=== PATIENT | male | born 1940 | race Two or more races ===

== ENCOUNTER 2017-10-03 20:04 | Inpatient (IN) | payer MEDICARE ==
[~2017-10-03] VITALS: Ht 210.8 cm; Wt 98.9 kg
--- NOTE | 2017-10-03 22:30 | NUR ---
patient [facility]ie[facility] and alert and talkative from [facility]. DX Pathological right femur FX. Seen by MD Christianson, he is aware the right leg is twisted and the patient will not allow me to straighten the leg. Md did tell the patient it would be better for the leg to be straight, and patient comment, ponting to me, "That is what she said". After being medicated with Morphine patient continued to have his leg slowly in good alignment, " stating the leg is too pain when moved, he is okay when not moved. He was transfered to the bed from [facility] with 4 medical staff. Right /Left leg bilaterally strong pedal pulses and warm. Sign above bed to alert all staff no Needle Sticks or Blood Pressure right arm dt lymph nodes rmoved dt Cancer.
[2017-10-04] VITALS: BP 98/79
[2017-10-04] MEDS ORDERED: LISI1TAB9 PO (00:23)
[2017-10-04] MEDS ORDERED: CELE200C PO (00:23)
[2017-10-04] MEDS ORDERED: CARV6.252 PO (00:23)
[2017-10-04] MEDS ORDERED: [UNRECOGNIZED DRUG - OTHER] (00:23)
[2017-10-04] MEDS ORDERED: ALLO300T2 PO (00:23)
[2017-10-04] MEDS ORDERED: MULT-1119 PO (00:23)
[2017-10-04] MEDS ORDERED: METF500T4 PO (00:23)
[2017-10-04] MEDS ORDERED: CARI350T27 PO (00:23)
[2017-10-04] MEDS ORDERED: METF10002 PO (00:23)
[2017-10-04] MEDS ORDERED: UBID30CA11 PO (00:23)
[2017-10-04] MEDS ORDERED: MORPHINE SULFATE INJ 2 MG/ML DISP.SYRIN IV PRN (02:00)
[2017-10-04] MEDS ORDERED: Z GUARD REMEDY 2 OZ OINT TP PRN (02:00)
[2017-10-04] MEDS ORDERED: ONDANSETRON HCL/PF 4 MG/2 ML VIAL IVP PRN (02:00)
[2017-10-04] MEDS ORDERED: ACETAMINOPHEN 325 MG TABLET PO PRN (02:00)
[2017-10-04] MEDS ORDERED: MORPHINE SULFATE INJ 10 MG/ML DISP.SYRIN ONE (02:17)
[2017-10-04] MEDS: IV NS 0.9% 1,000 ML IV PRN ×2 (02:44→18:38)
[2017-10-04] MEDS ORDERED: LORAZEPAM INJ 2 MG/ML VIAL ONE (03:15)
[2017-10-04] MEDS: LORAZEPAM INJ 2 MG/ML VIAL IV PRN ×2 (03:19→20:26)
--- NOTE | 2017-10-04 04:57 | NUR ---
Patient given Morphine 2 mg for pain right hip, and it was effective. The right leg remains as when admitted, deformed position. Seen by Md Ferrer. He refuses to allow me to gentley strreaighten the leg out. MD ferrer and I also told him the reason iy would be better to have the leg straight. Good pedal pulse magui feet and warm to touch. NPO d/t consult surgeon to see Possible surgery. Wallet with cards/cell po and online user experience strategist/ eyeglasses/ black address book at the bedside, instructed him to give to friend when they come to visit. Originally went to [facility], was transfered to [facility] @ 22:30. Remains alert and orientated X4
--- NOTE | 2017-10-04 07:05 | NUR ---
MS RN OPENING NOTES RECEIVED PT FROM NIGHTSHIFT NURSE IN STABLE CONDITION. PT IS A/O X3. NO SOB OR SIGNS OF DISTRESS NOTED. BREATHING IS EVEN AND UNLABORED. PT DENIES PAIN AT THIS TIME. NPO STATUS UPHELD FOR POSSIBLE SURGERY. PT. MADE AWARE AND VERBALIZED UNDERSTANDING. PER NIGHTSHIFT NURSE PT MAY HAVE ICE CHIPS AND MEDS ACCORDING TO THE MD. LARA CATHETER FROM [place] REMAINS INTACT AND DRAINING CLEAR YELLOW URINE. IV NOTED ON LEFT ARM INFUSING NS @ 70ML/HR. PT IS TOLERATING INFUSION WELL. NO REDNESS OR SIGNS OF INFILTRATION NOTED. BED IN LOW LOCKED POSITION, SIDE RAILS UP X3, CALL LIGHT WITHIN REACH, BED ALARM ON. WILL CONTINUE TO MONITOR
[2017-10-04 07:08] VITALS: BP 142/65
[2017-10-04] MEDS: CARVEDILOL 6.25 MG TABLET PO SCH (09:00)
[2017-10-04] MEDS: CARISOPRODOL 350 MG TABLET PO SCH (09:35)
[2017-10-04] MEDS: ALLOPURINOL 100 MG TABLET PO SCH (09:35)
[2017-10-04] MEDS: LISINOPRIL (10MG) 10 MG TABLET PO SCH (09:35)
--- NOTE | 2017-10-04 12:19 | NUR ---
Social service consult requested by THOMPSON Vora for Advance Directives. ANGY met with pt. bedside. Pt. is a 77 year old male who was admitted to [facility] for right hip fracture. Pt. is alert and oriented x4. ANGY gave pt. the Advance directive form and reviewed the form with him. Pt. will notify his family regarding completing the advance directives.
--- NOTE | 2017-10-04 14:38 | NUR ---
XRAY ORDERS TO BE CLARIFIED. ORDERED "LEFT" HIP AND FEMUR, PATIENT STATES PAIN IS ON "RIGHT" SIDE. PATIENT STATES HE IS IN PAIN AND UNABLE TO TOLERATE XRAYS CURRENTLY. RN WILL CALL WHEN READY.
[2017-10-04] MEDS: HYDROMORPHONE 1 MG/1 ML DISP.SYRIN IV PRN (17:10)
[2017-10-04] MEDS: METFORMIN 500 MG TABLET PO SCH (17:10)
--- NOTE | 2017-10-04 17:13 | NUR ---
MS RN NOTES PT ASKED THAT DR. GREENE SPEAK TO HIS ONCOLOGIST. PER COURY THE SMOKEHOUSE OPERATOR, THE ONCOLOGIST HAS ASKED FOR XRAYS OF THE PT'S LEFT LEG DESPITE THE FRACTURE BEING IN HIS RIGHT DUE TO AN ABNORMAL PET SCAN DONE PRIOR TO THIS ADMISSION. PT IS REFUSING TO DO THE XRAYS AT THIS TIME. WAS MADE AWARE
--- NOTE | 2017-10-04 17:36 | NUR ---
MS RN NOTES PT HAS NOW AGREED TO LEFT LEG XRAYS. EMERGENCY DOCTOR WAS NOTIFIED AND STATED THAT HE WILL BE UP SHORTLY. MADE AWARE
--- NOTE | 2017-10-04 18:35 | NUR ---
MS RN CLOSING NOTES PT REMAINS IN STABLE CONDITION. ALL DUE MEDS GIVEN AND ORDERS CARRIED OUT ACCORDINGLY. SUPERVISOR DENTURE DEPARTMENT IS WITH THE PT AT THE MOMENT. ALL SAFETY MEASURES REMAIN IN PLACE. WILL ENDORSE TO NIGHTSHIFT NURSE FOR SOPHIA
[2017-10-04 20:00] VITALS: BP 126/77
--- NOTE | 2017-10-04 20:00 | NUR ---
MS/RN OPENING NOTES PATIENT IN BED, ALERT, ORIENTED AND ABLT TO VERBALIZE NEEDS, REQUESTED TO HAVE ATIVAN IVP DUE TO INABILITY TO RELAX, PATIENT ON NPO AFTER MN FOR PROCEDURE, CONSENT SIGNED, WILL PREPARE CHECKLIST, WARM BLANKET PROVIDED, CALL LIGHTS WITHIN REACH, BED IN LOCK POSITION, WILL CONTINUE TO MONITOR, ON OXYGEN 2 L VIA NC .
[2017-10-05] MEDS: IV NS 0.9% 1,000 ML IV PRN ×2 (05:32→23:53)
--- NOTE | 2017-10-05 06:42 | NUR ---
310-2 MS/RN CLOSING NOTES PATIENT RESTING COMFORTABLY IN BED, ABLE TO SLEEP DURING THE NIGHT, ADMINISTER IVP ATIVAN PER PATIENT REQUEST, MONITORING FOR PAIN. PROVIDE WARMTH, RESPIRATIONS EVEN AND UNLABORED, WILL CONTINUE TO MONITOR. WILL ENDORSE TO AM RN FOR SOPHIA.
--- NOTE | 2017-10-05 07:05 | NUR ---
MS RN OPENING NOTES RECEIVED PT FROM NIGHTSHIFT NURSE IN STABLE CONDITION. PT IS A/O X3. NO SOB OR SIGNS OF DISTRESS NOTED. BREATHING IS EVEN AND UNLABORED. PT DENIES PAIN AT THIS TIME. NPO STATUS MAINTAINED SINCE MIDNIGHT FOR SURGERY AT 11:30. LARA CATHETER INTACT AND DRAINING CLEAR YELLOW URINE. IV NOTED ON LEFT ARM INFUSING NS @ 75ML/HR. PT IS TOLERATING INFUSION WELL. NO REDNESS OR SIGNS OF INFILTRATION NOTED. BED IN LOW LOCKED POSITION, SIDE RAILS UP X3, CALL LIGHT WITHIN REACH, BED ALARM ON. WILL CONTINUE TO MONITOR
[2017-10-05 07:16] LABS: EOSINOPHILS # (AUTO) 0.1 /CMM (0.0-0.7); EOSINOPHILS % (AUTO) 1.8 % (0.0-6.0); HEMATOCRIT 24 % (39-51); HEMOGLOBIN 8.1 g/dL (13.5-17.5); LYMPHOCYTES # (AUTO) 0.9 /CMM (0.8-4.8); LYMPHOCYTES % (AUTO) 19.1 % (20.0-44.0); MEAN CORPUSCULAR HEMOGLOBIN 28 PG (26.0-33.0); MEAN CORPUSCULAR HGB CONC 34 g/dl (31.0-36.0); MEAN CORPUSCULAR VOLUME 82 fL (80-96); MONOCYTES # (AUTO) 0.5 /CMM (0.1-1.30); MONOCYTES % (AUTO) 10.7 % (2.0-12.0); NEUTROPHILS # (AUTO) 3.2 /CMM (1.8-8.9); NEUTROPHILS % (AUTO) 68.4 % (43.0-81.0); PLATELET COUNT (AUTO) 136 /CMM (150-450); RDW COEFFICIENT OF VARIATION 14.7 (11.5-15.0); RED BLOOD CELL COUNT(AUTO) 2.93 MIL/uL (4.5-6.0); WHITE BLOOD COUNT (AUTO) 4.6 K/uL (4.3-11.0)
[2017-10-05 07:25] LABS: CARBON DIOXIDE 27 mmol/L (21-32); CHLORIDE 110 mmol/L (98-107); CREATININE 1.3 mg/dL (0.6-1.3); GLUCOSE 146 mg/dL (74-106); MAGNESIUM 1.4 mg/dL (1.8-2.4); SODIUM SERUM 145 mmol/L (136-145); UREA NITROGEN, BLOOD 29 mg/dL (7-18)
[2017-10-05 07:54] LABS: CHOLESTEROL 161 mg/dL (<200); HDL CHOLESTEROL 48 mg/dL (40-60); LDL 87 mg/dL (0-99); TRIGLYCERIDES 118 mg/dL (30-150)
[2017-10-05 08:00] VITALS: BP 126/63
[2017-10-05] MEDS: CARVEDILOL 6.25 MG TABLET PO SCH ×2 (08:00→18:11)
--- NOTE | 2017-10-05 08:50 | NUR ---
MS RN NOTES PT'S MG IS 1.4 AND SCHEDULED FOR SURGERY AT 11.30. DR. ZHOU WAS NOTIFIED AND ORDERED 2G OF MAG. WILL INPUT ORDER AND ADMINISTER MEDICATION
[2017-10-05 08:59] LABS: INR 0.98 (0.87-1.13); PROTHROMBIN TIME 10.2 SECS (9.5-12.7)
[2017-10-05] MEDS: ALLOPURINOL 100 MG TABLET PO SCH (09:00)
[2017-10-05] MEDS: LISINOPRIL (10MG) 10 MG TABLET PO SCH (09:00)
[2017-10-05] MEDS: CARISOPRODOL 350 MG TABLET PO SCH (09:00)
[2017-10-05] MEDS ORDERED: Magnesium 1 GM/2 ML VIAL IV ONE (09:00)
[2017-10-05] MEDS: Magnesium 1GM/D5W 100ML PREMIX 100 ML IV SCH ×2 (09:03→10:10)
[2017-10-05] MEDS ORDERED: FENTANYL PF 100MCG/2ML AMPUL ONE ×2 (11:18→12:40)
--- NOTE | 2017-10-05 11:19 | NUR ---
MS RN NOTES PY TAKEN DOWN BY OR STAFF FOR SCHEDULED PROCEDURE IN STABLE CONDITION. 2G OF MAGNESIUM WERE ADMINISTERED PRIOR TO OPERATION ORDERED
[2017-10-05] MEDS ORDERED: BACITRACIN 50000 UNITS/VIAL ONE (11:27)
[2017-10-05] MEDS ORDERED: BUPIVACAINE 0.5 % PF 150 MG/30 ML VIAL ONE (11:27)
[2017-10-05] MEDS ORDERED: ONDANSETRON HCL/PF 4 MG/2 ML VIAL ONE (12:51)
--- NOTE | 2017-10-05 13:30 | NUR ---
MS RN NOTES RECEIVED PT FROM OR IN STABLE CONDITION. PT IS AWAKE BUT A LITTLE DROWSY FROM THE PROCEDURE. HE DENIES ANY PAIN AT THIS TIME. SCDS PLACED ON BILATERAL LOWER EXTREMITIES. ORDERS FROM MD NOTED. SURGICAL DRESSING NOTED ON RIGHT HIP AND RIGHT LOWER THIGH. VITALS WNL. WILL CONTINUE TO MONITOR.
[2017-10-05 16:00] VITALS: BP 122/62
--- NOTE | 2017-10-05 17:36 | NUR ---
MS RN NOTES PT REFUSED PT EVAL AT THIS TIME DUE TO PAIN. CARMEN THE PT ASKED IF THE MD CAN PLACE ANOTHER ORDER FOR PT. JOSE WAS NOTIFIED AND SATED THAT HE WILL PUT IT IN TOMORROW
[2017-10-05] MEDS: METFORMIN 500 MG TABLET PO SCH (18:10)
--- NOTE | 2017-10-05 18:33 | NUR ---
MS RN CLOSING NOTES PT REMAINS IN STABLE CONDITION AFTER ORIF PROCEDURE. VITALS REMAIN IN WNL. SURGICAL SITE REMAIN CLEAN, DRY, AND INTACT. ALL DUE MEDS GIVEN AND ORDERS CARRIED OUT ACCORDINGLY. SAFETY MEASURES REMAIN IN PLACE. WILL ENDORSE TO NIGHTSHIFT NURSE FOR SOPHIA
--- NOTE | 2017-10-05 19:30 | NUR ---
MS RN OPENING NOTES: PATIENT IN BED, AOX4, ON ROOM AIR, BREATHING EVEN AND UNLABORED. APPEARS CALM, BUT DOES COMPLAIN OF PAIN OVER R HIP AND LOWER BACK SCALED AT 5/10, DESCRIBED DULL. PIV OVER L ARM G18 INTACT AND INFUSING WELL WITH NS RUNNING AT 75 ML/HR. LARA CATHETER IN PLACE DRAINING CLEAR YELLOW URINE. PROVIDED FOR COMFORT AND SAFETY. BED IN LOWEST AND LOCKED POSITION, SIDERAILS UPX3. WILL CONT TO MONITOR.
[2017-10-05 20:00] VITALS: BP 123/57
--- NOTE | 2017-10-05 23:00 | NUR ---
RN NOTES: SPOKE TO DR BEAVERS, EXPLAINED TO HIM PATIENT IS POST OP, VTE SCORE IS 5, ASKED IF HE WANTS TO ORDER CHEMICAL PPX. PER DR BEAVERS, OK TO START LOVENOX 40 MG SQ DAILY. ALSO ORDERED FOR DVT PUMPS. NOTED AND CARRIED OUT.
[2017-10-05] MEDS: LORAZEPAM INJ 2 MG/ML VIAL IV PRN (23:44)
[2017-10-06] VITALS (15 sets, daily range): BP systolic 113–141; BP diastolic 51–74
[2017-10-06] MEDS: HYDROMORPHONE 1 MG/1 ML DISP.SYRIN IV PRN ×2 (02:07→21:45)
--- NOTE | 2017-10-06 02:09 | NUR ---
RN NOTES: PT COMPLAINED OF 8/10 PAIN OVER R HIP, WHEN RN AND CADDIE SUPERVISOR ARE TRYING TO REPOSITION HIM. ADMINISTERED 0.25 MG DILAUDID IV PRN. WILL CONT TO MONITOR.
[2017-10-06] MEDS ORDERED: diphenhydrAMINE HCL 50 MG CAPSULE PO PRN (04:30)
--- NOTE | 2017-10-06 06:55 | NUR ---
MS RN CLOSING NOTES: PATIENT IN BED, AOX4, ON ROOM AIR, BREATHING EVEN AND UNLABORED. APPEARS CALM AND IN NO DISTRESS, BUT STILL COMPLAINS OF 8-9/10 PAIN OVER R HIP AND LOWER BACK WHENEVER HE IS BEING REPOSITIONED. PIV OVER KARLA G18 INTACT AND PATENT, INFUSING WELL WITH NS RUNNING AT 75 ML/HR. LARA CATHETER IN PLACE DRAINING CLEAR YELLOW URINE. DRESSING OVER R HIP INTACT AND CLEAN, WITH NO SIGNS OF BLEEDING OR PURULENT DISCHARGE. DUE MEDS GIVEN. PROVIDED FOR COMFORT AND SAFETY. BED IN LOWEST AND LOCKED POSITION, SIDERAILS UPX3. WILL ENDORSE TO AM RN FOR SOPHIA.
[2017-10-06] MEDS: ENOXAPARIN SODIUM 40 MG/0.4 ML DISP.SYRIN SQ SCH ×2 (07:30→15:59)
[2017-10-06 07:43] LABS: BASOPHILS % (AUTO) 0.1 % (0.0-2.0); EOSINOPHILS # (AUTO) 0.1 /CMM (0.0-0.7); EOSINOPHILS % (AUTO) 1.2 % (0.0-6.0); LYMPHOCYTES # (AUTO) 0.8 /CMM (0.8-4.8); LYMPHOCYTES % (AUTO) 18.2 % (20.0-44.0); MEAN CORPUSCULAR HEMOGLOBIN 27 PG (26.0-33.0); MEAN CORPUSCULAR HGB CONC 33 g/dl (31.0-36.0); MEAN CORPUSCULAR VOLUME 81 fL (80-96); MONOCYTES # (AUTO) 0.6 /CMM (0.1-1.30); MONOCYTES % (AUTO) 13.3 % (2.0-12.0); NEUTROPHILS # (AUTO) 3.1 /CMM (1.8-8.9); NEUTROPHILS % (AUTO) 67.2 % (43.0-81.0); PLATELET COUNT (AUTO) 125 /CMM (150-450); RDW COEFFICIENT OF VARIATION 14.5 (11.5-15.0); RED BLOOD CELL COUNT(AUTO) 2.42 MIL/uL (4.5-6.0); WHITE BLOOD COUNT (AUTO) 4.6 K/uL (4.3-11.0)
[2017-10-06 07:48] LABS: HEMATOCRIT 20 % (39-51); HEMOGLOBIN 6.5 g/dL (13.5-17.5)
--- NOTE | 2017-10-06 07:50 | NUR ---
RN NOTES PER LAB CRITICAL LAB REPORTED H&H (6.5&20).
--- NOTE | 2017-10-06 07:51 | NUR ---
RN OPENING NOTES RECEIVED PT. IN BED A&OX4. BREATHING UNLABORED, AND EVENLY ON ROOM AIR. NO S/S OF ACUTE DISTRESS. IV FLUIDS RUNNING AT 75 ML/HR. BED IS IN LOWEST LOCKED POSITION, 2 SIDE RAILS UP, AND INSTRUCTED PT. TO USE CALL LIGHT FOR ASSISTANCE. WILL CONTINUE TO ASSESS AND MONITOR.
--- NOTE | 2017-10-06 08:00 | NUR ---
RN NOTES DISCUSSED WITH DR. ANIL JC'S CRITICAL LABS H&H.
[2017-10-06 08:01] LABS: CALCIUM, SERUM 8.8 mg/dL (8.5-10.1); CARBON DIOXIDE 26 mmol/L (21-32); CHLORIDE 109 mmol/L (98-107); CREATININE 1.3 mg/dL (0.6-1.3); GLUCOSE 162 mg/dL (74-106); MAGNESIUM 1.6 mg/dL (1.8-2.4); PHOSPHORUS 4.1 mg/dL (2.5-4.9); POTASSIUM 4.2 mmol/L (3.5-5.1); SODIUM SERUM 143 mmol/L (136-145); UREA NITROGEN, BLOOD 27 mg/dL (7-18)
--- NOTE | 2017-10-06 08:08 | NUR ---
RN NOTES PT. HAD LOW H&H, DID NOT ADMINISTER LOVENOX.
[2017-10-06] MEDS: CARVEDILOL 6.25 MG TABLET PO SCH ×2 (08:11→18:04)
[2017-10-06 08:59] LABS: BAND % (MANUAL) 1 % (0.0-5.0); LYMPHOCYTES % (MANUAL) 21 % (16-48); MONOCYTES % (MANUAL) 8 % (0-11.0); NEUTROPHILS % (MANUAL) 70 (42-76)
[2017-10-06] MEDS: CARISOPRODOL 350 MG TABLET PO SCH (09:20)
[2017-10-06] MEDS: ALLOPURINOL 100 MG TABLET PO SCH (09:20)
[2017-10-06] MEDS: LISINOPRIL (10MG) 10 MG TABLET PO SCH (09:20)
--- NOTE | 2017-10-06 09:52 | NUR ---
RN NOTES CALLED [facility] TO CONTACT DR. ZHOU ABOUT PT.'S LOW H&H. MD WILL BE PAGED.
[2017-10-06] MEDS ORDERED: Magnesium 1GM/D5W 100ML PREMIX 100 ML IV SCH (12:00)
--- NOTE | 2017-10-06 12:05 | NUR ---
RN NOTES STARTED BLOOD TRANSFUSION WITHOUT COMPLICATION. VITAL SIGNS ARE STABLE. WILL CONTINUE TO MONITOR VITAL SIGNS AND FOR ADVERSE REACTIONS.
[2017-10-06] MEDS: METFORMIN 500 MG TABLET PO SCH (18:04)
[2017-10-06] MEDS: CARISOPRODOL 350 MG TABLET PO PRN (18:04)
--- NOTE | 2017-10-06 19:29 | NUR ---
RN CLOSING NOTES PT. IN BED A&OX4. BREATHING UNLABORED, AND EVENLY ON ROOM AIR. NO S/S OF ACUTE DISTRESS. IV ACCESS PATENT ON RIGHT FOREARM. PT. RECEIVED 2 UNITS OF PRBC'S. BED IS IN LOWEST LOCKED POSITION, 2 SIDE RAILS UP, AND INSTRUCTED PT. TO USE CALL LIGHT FOR ASSISTANCE. WILL ENDORSE REPORT TO NURSE.
--- NOTE | 2017-10-06 19:30 | NUR ---
MS RN OPENING NOTES: PATIENT IN BED, AOX4, ON ROOM AIR, BREATHING EVEN AND UNLABORED. APPEARS CALM AND IN NO DISTRESS, DENIES PAIN, BUT STATES THAT IT IS PAINFUL OVER HIS R HIP WHENEVER HE IS BEING TURNED. PIV CATHETER OVER LFA IS ALREADY OUT. D'MARY JO LINE. LARA CATHETER IN PLACE DRAINING CLEAR YELLOW URINE. PROVIDED FOR COMFORT AND SAFETY. BED IN LOWEST NAD LOCKED POSITION, SIDERAILS UPX3. CALL LIGHT WITHIN REACH. WILL CONT TO MONITOR.
[2017-10-06] MEDS ORDERED: Magnesium 1GM/D5W 100ML PREMIX PIGGYBACK IV ONE (20:00)
[2017-10-06] MEDS: IV NS 0.9% 1,000 ML IV PRN (20:15)
--- NOTE | 2017-10-06 20:15 | NUR ---
RN NOTES: REINSERTED NEW PIV OVER AC G20, WITH GOOD BLOOD RETURN.
[2017-10-06] MEDS: Magnesium 1GM/D5W 100ML PREMIX 100 ML IV SCH ×2 (20:16→21:32)
--- NOTE | 2017-10-06 21:49 | NUR ---
RN NOTES: PT COMPLAINED OF 9/10 PAIN OVER R HIP AND LOWER BACK, ADMINISTERED DILAUDID 0.25 MG IV PRN FOR PAIN. TRIED TO REPOSITION PATIENT SLIGHTLY TO LEFT SIDE. WILL CONT TO MONITOR.
[2017-10-06 22:34] LABS: HEMOGLOBIN 8.6 g/dL (13.5-17.5)
[2017-10-07] MEDS: CARISOPRODOL 350 MG TABLET PO PRN (04:35)
[2017-10-07 05:00] VITALS: BP 132/75
[2017-10-07 06:28] LABS: BASOPHILS % (AUTO) 0.2 % (0.0-2.0); EOSINOPHILS # (AUTO) 0.1 /CMM (0.0-0.7); EOSINOPHILS % (AUTO) 1.5 % (0.0-6.0); HEMATOCRIT 26 % (39-51); LYMPHOCYTES # (AUTO) 0.8 /CMM (0.8-4.8); LYMPHOCYTES % (AUTO) 14.4 % (20.0-44.0); MEAN CORPUSCULAR HEMOGLOBIN 28 PG (26.0-33.0); MEAN CORPUSCULAR HGB CONC 34 g/dl (31.0-36.0); MEAN CORPUSCULAR VOLUME 83 fL (80-96); MONOCYTES # (AUTO) 0.7 /CMM (0.1-1.30); MONOCYTES % (AUTO) 12.9 % (2.0-12.0); NEUTROPHILS # (AUTO) 3.8 /CMM (1.8-8.9); PLATELET COUNT (AUTO) 128 /CMM (150-450); RDW COEFFICIENT OF VARIATION 14.4 (11.5-15.0); RED BLOOD CELL COUNT(AUTO) 3.16 MIL/uL (4.5-6.0); WHITE BLOOD COUNT (AUTO) 5.4 K/uL (4.3-11.0)
--- NOTE | 2017-10-07 06:38 | NUR ---
MS RN CLOSING NOTES: PATIENT IN BED, AOX4, ON O2 AT 2 LPM VIA NC, BREATHING EVEN AND UNLABORED. PIV OVER LAC G 20 INTACT AND PATENT, INFUSING WELL WITH NS RUNNING AT 75 ML/HR. LARA CATHETER IN PLACE DRAINING CLEAR YELLOW URINE. DUE MEDS GIVEN. PROVIDED FOR COMFORT AND SAFETY. BED IN LOWEST AND LOCKED POSITION. SIDERAILS UP X3. WILL ENDORSE TO AM RN FOR SOPHIA.
[2017-10-07 06:49] LABS: CARBON DIOXIDE 25 mmol/L (21-32); CHLORIDE 105 mmol/L (98-107); CREATININE 1.2 mg/dL (0.6-1.3); GLUCOSE 153 mg/dL (74-106); MAGNESIUM 1.7 mg/dL (1.8-2.4); PHOSPHORUS 3.8 mg/dL (2.5-4.9); POTASSIUM 4.1 mmol/L (3.5-5.1); SODIUM SERUM 139 mmol/L (136-145); UREA NITROGEN, BLOOD 23 mg/dL (7-18)
[2017-10-07 06:53] VITALS: BP 140/64
--- NOTE | 2017-10-07 07:45 | NUR ---
MS/RN OPENING NOTE PATIENT RECEIVED IN BED IN STABLE CONDITION. A/O X 3. ON O2 2LPM TOLERATING WELL. NO SIGNS OF ACUTE DISTRESS. NO COMPLAIN OF PAIN OR DISCOMFORT AT THIS TIME. ALL NEEDS ATTENDED TO. CALL LIGHT WITHIN REACH. WILL CONTINUE TO MONITOR TO ENSURE SAFETY.
[2017-10-07 08:00] VITALS: BP 143/69
[2017-10-07] MEDS: HYDROMORPHONE 1 MG/1 ML DISP.SYRIN IV PRN (08:32)
[2017-10-07] MEDS: ALLOPURINOL 100 MG TABLET PO SCH (08:33)
[2017-10-07] MEDS: CARVEDILOL 6.25 MG TABLET PO SCH ×2 (08:34→17:18)
[2017-10-07] MEDS: LISINOPRIL (10MG) 10 MG TABLET PO SCH (08:34)
[2017-10-07] MEDS: ENOXAPARIN SODIUM 40 MG/0.4 ML DISP.SYRIN SQ SCH (10:32)
[2017-10-07] MEDS: Magnesium 1GM/D5W 100ML PREMIX 100 ML IV SCH ×2 (10:32→11:59)
--- NOTE | 2017-10-07 11:00 | NUR ---
MS/RN SEEN BY DR ZHOU PATIENT SEEN BY DR ZHOU WITH ORDERS FOR FOLLOW UP LABS IN AM
[2017-10-07] MEDS: IV NS 0.9% 1,000 ML IV PRN (15:16)
[2017-10-07 16:00] VITALS: BP 137/68
[2017-10-07] MEDS: METFORMIN 500 MG TABLET PO SCH (17:17)
--- NOTE | 2017-10-07 18:27 | NUR ---
MS/RN CLOSING NOTE PATIENT IN BED IN STABLE CONDITION. A/O X 4. NO SIGNS OF ACUTE DISTRESS. NO COMPLAIN OF PAIN OR DISCOMFORT. ALL NEEDS ATTENDED TO. CALL LIGHT WITHIN REACH. WILL ENDORSE TO NEXT SHIFT FOR CONTINUITY OF CARE.
--- NOTE | 2017-10-07 19:33 | NUR ---
MS/RN RECEIVE PATIENT AWAKE, ALERT, ORIENTED, COMFORTABLE, NO DISTRESS NOTED, CALL LIGHT IN REACH. WILL MONITOR.
[2017-10-07 20:00] VITALS: BP 125/64
[2017-10-07] MEDS: LORAZEPAM INJ 2 MG/ML VIAL IV PRN (21:35)
--- NOTE | 2017-10-07 21:45 | NUR ---
MS/RN PER PATIENT HE FEELS ANXIOUS AND WANT TO GO SLEEP, ATIVAN 1 MG IVP WAS GIVEN ORDERED. WILL MONITOR.
--- NOTE | 2017-10-07 22:20 | NUR ---
MS/RN PATIENT IS SLEEPING AT THIS TIME, AROUSABLE, APPEAR COMFORTABLE, NO SIGNS OF DISTRESS NOTED, CALL LIGHT IN REACH. WILL CONTINUE TO MONITOR.
[2017-10-08] MEDS: HYDROMORPHONE 1 MG/1 ML DISP.SYRIN IV PRN ×4 (00:40→17:44)
[2017-10-08] MEDS: IV NS 0.9% 1,000 ML IV PRN ×2 (04:04→19:34)
--- NOTE | 2017-10-08 04:44 | NUR ---
MS/RN MORNING CARE DONE, SKIN CARE RENDERED, TOTAL LINEN CHANGE DONE. REPOSITIONED TO COMFORT. PATIENT HAS BEEN REFUSING TO BE TURNED. EDUCATION GIVEN ON IMPORTANCE OF TURNING. VERBALIZED UNDERSTANDING.
[2017-10-08 06:22] LABS: BASOPHILS % (AUTO) 0.2 % (0.0-2.0); EOSINOPHILS # (AUTO) 0.1 /CMM (0.0-0.7); EOSINOPHILS % (AUTO) 1.9 % (0.0-6.0); HEMATOCRIT 25 % (39-51); HEMOGLOBIN 8.5 g/dL (13.5-17.5); LYMPHOCYTES # (AUTO) 0.7 /CMM (0.8-4.8); LYMPHOCYTES % (AUTO) 14.2 % (20.0-44.0); MEAN CORPUSCULAR HEMOGLOBIN 28 PG (26.0-33.0); MEAN CORPUSCULAR HGB CONC 34 g/dl (31.0-36.0); MEAN CORPUSCULAR VOLUME 83 fL (80-96); MONOCYTES # (AUTO) 0.7 /CMM (0.1-1.30); MONOCYTES % (AUTO) 13.7 % (2.0-12.0); NEUTROPHILS # (AUTO) 3.5 /CMM (1.8-8.9); PLATELET COUNT (AUTO) 162 /CMM (150-450); RDW COEFFICIENT OF VARIATION 14.5 (11.5-15.0); RED BLOOD CELL COUNT(AUTO) 3.02 MIL/uL (4.5-6.0)
[2017-10-08 06:41] LABS: CALCIUM, SERUM 9.4 mg/dL (8.5-10.1); CARBON DIOXIDE 26 mmol/L (21-32); CHLORIDE 102 mmol/L (98-107); CREATININE 1.2 mg/dL (0.6-1.3); GLUCOSE 145 mg/dL (74-106); MAGNESIUM 1.6 mg/dL (1.8-2.4); PHOSPHORUS 4.1 mg/dL (2.5-4.9); SODIUM SERUM 138 mmol/L (136-145); UREA NITROGEN, BLOOD 22 mg/dL (7-18)
--- NOTE | 2017-10-08 06:53 | NUR ---
MS/RN SLEEPING AT THIS TIME, AROUSABLE, APPEAR COMFORTABLE, NO DISTRESS NOTED. ALL NEEDS ATTENDED AT THIS TIME. WILL CONTINUE TO MONITOR.
--- NOTE | 2017-10-08 07:44 | NUR ---
MS/RN OPENING NOTE PATIENT RECEIVED IN BED IN STABLE CONDITION. A/O X 4. NO SIGNS OF ACUTE DISTRESS. NO COMPLAIN OR PAIN OR DISCOMFORT AT THIS TIME. ALL NEEDS ATTENDED TO. CALL LIGHT WITHIN REACH. WILL CONTINUE TO MONITOR TO ENSURE SAFETY.
[2017-10-08 08:00] VITALS: BP 137/70
[2017-10-08] MEDS: ENOXAPARIN SODIUM 40 MG/0.4 ML DISP.SYRIN SQ SCH (08:20)
[2017-10-08] MEDS: ALLOPURINOL 100 MG TABLET PO SCH (08:21)
[2017-10-08] MEDS: LISINOPRIL (10MG) 10 MG TABLET PO SCH (08:21)
[2017-10-08] MEDS: CARVEDILOL 6.25 MG TABLET PO SCH ×2 (08:21→17:44)
[2017-10-08] MEDS: Magnesium 1GM/D5W 100ML PREMIX 100 ML IV SCH ×2 (09:33→10:58)
--- NOTE | 2017-10-08 10:38 | NUR ---
MS/RN SEEN BY DR ZHOU AND F/C REMOVAL PATIENT SEEN BY DR ZHOU WITH ORDERS TO DC F/C. S/P FC REMOVAL TOLERATED WELL. WILL MONITOR FOR ANY EPISODES OF URINARY RETENTION.
--- NOTE | 2017-10-08 14:07 | NUR ---
MS/RN SPOKE WITH DR ZHOU SPOKE WITH DR ZHOU AND MADE AWARE PATIENT NOT ABLE TO HAVE BM, NOTED WITH ONLY SMALL SMEARS. PER DR ZHOU N/O OF MOM 30ML Q24H PRN.
[2017-10-08] MEDS ORDERED: MAGNESIUM HYDROXIDE 30 ML UDC PO PRN (14:30)
[2017-10-08 16:00] VITALS: BP 148/66
[2017-10-08] MEDS: METFORMIN 500 MG TABLET PO SCH (17:43)
--- NOTE | 2017-10-08 18:13 | NUR ---
MS/RN CLOSING NOTE PATIENT IN BED IN STABLE CONDITION. A/O X 3. NO SIGNS OF ACUTE DISTRESS. NO COMPLAIN OF PAIN OR DISCOMFORT. NO EPISODES OF URINARY RETENTION NOTED. ALL NEEDS ATTENDED TO. CALL LIGHT WITHIN REACH. WILL ENDORSE TO NEXT SHIFT FOR CONTINUITY OF CARE.
--- NOTE | 2017-10-08 19:20 | NUR ---
MS RN OPENING NOTES RECEIVED PATIENT SLEEPING IN BED IN SEMI SOLANO POSITION, A & O X 4. NO SOB, NO C/O PAIN, NO ACUTE DISTRESS NOTED. IV ACCESS TO LAC RUNNING WITH NS @ 75 ML/HR, INTACT PATENT. WILL ASSESS FOR PAIN. BED IN LOW LOCKED POSITION. CALL LIGHT WITHIN PLACE. SAFETY MEASURES IN PLACE. WILL OBSERVE CLOSELY.
[2017-10-08 20:00] VITALS: BP 133/66
[2017-10-08 20:05] VITALS: BP 133/66
--- NOTE | 2017-10-08 22:00 | NUR ---
IV ACCESS CHANGED LAC IV LINE NOTED TO BE LEAKING WITH FLUIDS. REMOVED LAC IV LINE, PRESSURE DRESSING APPLIED. NEW IV LINE INSERTED TO LEFT WRIST WITH GOOD BLOOD FLOW, PROCEDURE TOLERATED WELL. WILL CONTINUE TO OBSERVE.
--- NOTE | 2017-10-08 22:51 | NUR ---
MSRN DILAUDED 1MG IV OUT OF STOCK REORDERED SAME DOSE 0.25 HOURLY NEEDED WITH 2MG VIAL OF DILUADED.
[2017-10-08] MEDS ORDERED: HYDROMORPHONE INJ 2 MG/ML DISP.SYRIN ONE (22:56)
--- NOTE | 2017-10-08 23:06 | NUR ---
PRN ZOFRAN GIVEN PATIENT VERBALIZED C/O NAUSEA, NO VOMITING NOTED AT THIS TIME. PRN ZOFRAN GIVEN. WILL REASSESS FOR EFFECTIVENESS.
[2017-10-08] MEDS: HYDROMORPHONE INJ 2 MG/ML DISP.SYRIN IV PRN (23:11)
--- NOTE | 2017-10-08 23:11 | NUR ---
PRN DILAUDID GIVEN PATIENT C/O RIGHT HIP PAIN 8/10, PRN DILAUDID GIVEN ORDERED. ASSISTED WITH SLIGHTLY TURNING & REPOSITIONING TOLERATED BY THE PATIENT. WILL REASSESS FOR EFFECTIVENESS OF PAIN MEDICINE.
--- NOTE | 2017-10-08 23:15 | NUR ---
ADDENDUM PRN MEDS MEAGHAN & DILAUDID ADMINISTERED BY ELI WHITFIELD. MEAGHAN @ [id number] & DILAUDID @ [id number] & DOCUMENTED WELL WHILE CHARGE NURSE SAGRARIO WAS LOGGED IN.
--- NOTE | 2017-10-09 03:45 | NUR ---
MS RN NOTES PATIENT SLEEPING INTERMITTENTLY, ASSISTED TURNING/REPOSITIONING & WITH ADL CARE. MADE COMFORTABLE IN BED. NO C/O PAIN NOTED AT THIS TIME. HANDLED VERY GENTLY. OBSERVING CLOSELY.
[2017-10-09] MEDS ORDERED: HYDROMORPHONE INJ 2 MG/ML DISP.SYRIN ONE (04:35)
[2017-10-09] MEDS: HYDROMORPHONE INJ 2 MG/ML DISP.SYRIN IV PRN ×3 (04:52→18:09)
--- NOTE | 2017-10-09 04:53 | NUR ---
PRN DILAUDID GIVEN PATIENT C/O PAIN TO RIGHT HIP, PRN PAIN MED GIVEN. WILL REASSESS FOR EFFECTIVENESS.
[2017-10-09 06:30] LABS: BASOPHILS % (AUTO) 0.1 % (0.0-2.0); EOSINOPHILS # (AUTO) 0.1 /CMM (0.0-0.7); EOSINOPHILS % (AUTO) 2.5 % (0.0-6.0); HEMATOCRIT 25 % (39-51); HEMOGLOBIN 8.4 g/dL (13.5-17.5); LYMPHOCYTES # (AUTO) 0.8 /CMM (0.8-4.8); LYMPHOCYTES % (AUTO) 14.9 % (20.0-44.0); MEAN CORPUSCULAR HEMOGLOBIN 28 PG (26.0-33.0); MEAN CORPUSCULAR HGB CONC 34 g/dl (31.0-36.0); MEAN CORPUSCULAR VOLUME 82 fL (80-96); MONOCYTES # (AUTO) 0.7 /CMM (0.1-1.30); NEUTROPHILS # (AUTO) 3.5 /CMM (1.8-8.9); NEUTROPHILS % (AUTO) 69.5 % (43.0-81.0); PLATELET COUNT (AUTO) 199 /CMM (150-450); RDW COEFFICIENT OF VARIATION 14.7 (11.5-15.0); RED BLOOD CELL COUNT(AUTO) 3.02 MIL/uL (4.5-6.0); WHITE BLOOD COUNT (AUTO) 5.1 K/uL (4.3-11.0)
--- NOTE | 2017-10-09 06:40 | NUR ---
MS RN CLOSING NOTES PATIENT SLEPT INTERMITTENTLY. A & O X 4. NO SOB, NO ACUTE DISTRESS NOTED. HAD C/O RIGHT HIP PAIN, PRN PAIN MEDS GIVEN & WAS EFFECTIVE. TURNED & REPOSITIONED TOLERATED. RESISTS TO TURN/REPOSITION AT TIMES. DRESSING CLEAN & INTACT TO RT HIP. ENCOURAGEMENT NEEDED WITH ADL CARE. IV ACCESS TO LEFT WRIST, INTACT PATENT WITH NS @ 75 ML/HR. S/P LARA CATH REMOVAL, NO HEMATURIA NOTED THIS SHIFT. ASSISTED WITH ADL CARE. SAFETY MEASURES IN PLACE. BED IN LOW LOCKED POSITION. BED ALARM ARMED. CALL LIGHT WITHIN REACH. WILL ENDORSE TO AM RN FOR CONTINUITY OF CARE.
[2017-10-09 06:42] LABS: CALCIUM, SERUM 9.5 mg/dL (8.5-10.1); CARBON DIOXIDE 27 mmol/L (21-32); CHLORIDE 101 mmol/L (98-107); CREATININE 1.1 mg/dL (0.6-1.3); GLUCOSE 150 mg/dL (74-106); MAGNESIUM 1.6 mg/dL (1.8-2.4); SODIUM SERUM 136 mmol/L (136-145); UREA NITROGEN, BLOOD 21 mg/dL (7-18)
--- NOTE | 2017-10-09 07:34 | NUR ---
RN OPENING NOTES PATIENT RESTING COMFORTABLY IN BED WITH EYES CLOSED. EASILY AROUSABLE. AOX4. RESPIRATIONS EVEN AND UNLABORED. NO ACUTE DISTRESS NOTED. DENIES ANY PAIN AT THIS TIME. DENIES SOB AND CP. IV ACCES ON THE LEFT WRIST 22G PATENT AND INTACT WITH NS RUNNING AT 75ML/HR. DRESSING TO THE RIGHT HIP IN TACT. TO BE CHANGED BY MD. BED LOCKED IN WANDER LOWEST POSITION WITH SIDE RAILS UP X2. CALL LIGHT WITHIN REACH. WILL CONTINUE TO MONITOR, ASSESS AND EDUCATE PATIENT THROUGHOUT SHIFT.
[2017-10-09 08:00] VITALS: BP 139/70
[2017-10-09] MEDS: CARVEDILOL 6.25 MG TABLET PO SCH ×2 (08:32→18:10)
[2017-10-09] MEDS: ALLOPURINOL 100 MG TABLET PO SCH (08:32)
[2017-10-09] MEDS: LISINOPRIL (10MG) 10 MG TABLET PO SCH (08:33)
[2017-10-09] MEDS ORDERED: HYDR-552 PO (10:02)
[2017-10-09] MEDS: Magnesium 1GM/D5W 100ML PREMIX 100 ML IV SCH ×2 (10:57→12:48)
[2017-10-09] MEDS: IV NS 0.9% 1,000 ML IV PRN (10:57)
[2017-10-09 16:00] VITALS: BP 128/65
[2017-10-09 18:00] VITALS: BP 140/71
--- NOTE | 2017-10-09 18:00 | NUR ---
RN CLOSING NOTES PATIENT DISCHARGED IN STABLE CONDITION TO [facility]. REPORT GIVEN TO ELI LOWRY. PATIENT AOX4. ALL EXITCARE COMPLETED AND SIGNED. ALL BELONGINGS ACCOUNTED FOR AND DOCUMENTATION SIGNED. PATIENT VERBALIZED UNDERSTANDING OF DISCHARGE INSTRUCTION. VS WNL. DENIES ANY PAIN AT THIS TIME. DENIES CP AND SOB. RESPIRATIONS EVEN AND UNLABORED. NO ACUTE DISTRESS. ALL MEDS GIVEN. ALL NEEDS MET.
[2017-10-09 18:10] VITALS: BP 128/65
[2017-10-09] MEDS: METFORMIN 500 MG TABLET PO SCH (18:10)
== END 2017-10-09 18:19 | DRG 481 ==
LOC: MED 21:57
PROC: 30233N1 Transfusion of Nonautologous Red Blood Cells into Peripheral Vein, Percutaneous Approach (ICD-10-PCS; 2017-10-05)
PROC: 0QS604Z Reposition Right Upper Femur with Internal Fixation Device, Open Approach (ICD-10-PCS; principal; 2017-10-05 11:30)
DX: S72.141A Displaced intertrochanteric fracture of right femur, initial encounter for closed fracture (principal); C79.51 Secondary malignant neoplasm of bone; E11.9 Type 2 diabetes mellitus without complications; D62 Acute posthemorrhagic anemia; W18.30XA Fall on same level, unspecified, initial encounter; Y92.009 Unspecified place in unspecified non-institutional (private) residence as the place of occurrence of the external cause; E78.5 Hyperlipidemia, unspecified; Z85.828 Personal history of other malignant neoplasm of skin; I10 Essential (primary) hypertension; Z98.890 Other specified postprocedural states; R31.9 Hematuria, unspecified
CPT/HCPCS: 36415; 73501; 73502; 73552; 80048-TC; 80061-TC; 82962-TC; 83735-TC; 84100-TC; 85025-TC; 85027-TC; 85610-TC; 85730-TC; 86850-TC; 86921-TC; 87081-TC; 93307-TC; 97110-TC; 97116-TC; 97530-TC; A6209; A6402; C1713; J0690; J1170; J1650; J2060; J2270; J2405; J2704; J3010; J3475; J3490; J7030; J7050; P9016-BL; Z7610